=== PATIENT | female | born 1965 | race Caucasian/White ===

== ENCOUNTER 2017-03-01 18:40 | Inpatient (IN) | payer MEDICAID ==
[2017-03-01] MEDS ORDERED: ALBUTEROL SULFATE 0.083% NEB 2.5 MG/3 ML AMPUL NEB ONE (18:46)
[2017-03-01] MEDS ORDERED: NORMAL SALINE 1000 ML 1,000 ML IV ONE ×2 (18:47→21:20)
--- NOTE | 2017-03-01 18:50 | ER Document Report ---
ED General - General Stated Complaint: SHORTNESS OF BREATH Notes: Patient is a 51-year-old female with past medical history of asthma and hypertension, she continues to smoke who presents with 24 hours of progressively worsening episode of shortness of breath. States that she's been using her albuterol at home with minimal improvement of her symptoms. EMS was contacted today when she states that her shortness of breath got to the point where it scared her. She has had a be hospitalized once in the past for asthma but states this was over a decade ago. She has never required intubation. She has not noted that having symptoms worsen her symptoms. She does describe symptoms is constant and progressively worsening since onset. Denies any sputum production, chest pain, lightheadedness or syncope. She has not spoken to her primary care doctor regarding today's concerns. TRAVEL OUTSIDE OF THE [place] IN LAST 30 DAYS: No - Related Data Allergies/Adverse Reactions: No Known Allergies Allergy (Verified 11/19/14 17:29) Past Medical History - General Information source: Patient - Social History Smoking Status: Current Every Day Smoker Frequency of alcohol use: None Drug Abuse: None Lives with: Spouse/Significant other Family History: Reviewed & Not Pertinent Pulmonary Medical History: Reports: Hx Asthma - Immunizations Hx Diphtheria, Pertussis, Tetanus Vaccination: Yes Review of Systems - Review of Systems Notes: Constitutional: Negative for fever. HENT: Negative for sore throat. Eyes: Negative for visual changes. Cardiovascular: Negative for chest pain. Respiratory: Positive for shortness of breath. Gastrointestinal: Negative for abdominal pain, vomiting or diarrhea. Genitourinary: Negative for dysuria. Musculoskeletal: Negative for back pain. Skin: Negative for rash. Neurological: Negative for headaches, weakness or numbness. 10 point ROS negative except as marked above and in HPI. Physical Exam - Vital signs Vitals: Resp Pulse Ox 25 H 93 03/01/17 18:42 03/01/17 18:42 Interpretation: Tachycardic, Hypoxic, Tachypneic Notes: PHYSICAL EXAMINATION: GENERAL: Appears in mild distress HEAD: Atraumatic, normocephalic. EYES: Pupils equal round and reactive to light, extraocular movements intact, sclera anicteric, conjunctiva are normal. ENT: nares patent, oropharynx clear without exudates. Moderately dry mucous membranes. NECK: Normal range of motion, supple without lymphadenopathy LUNGS: Mild to moderate respiratory distress tachypnea. Initial respiratory rate of 32. She does have some intercostal retractions. There is diminished air movement throughout and coarse wheezing in all lung phipps with a prolonged expiratory phase. HEART: Regular tachycardia without murmurs ABDOMEN: Soft, nontender, normoactive bowel sounds. No guarding, no rebound. No masses appreciated. EXTREMITIES: Normal range of motion, no pitting or edema. No cyanosis. NEUROLOGICAL: No focal neurological deficits. Moves all extremities spontaneously and on command. PSYCH: Normal mood, normal affect. SKIN: Warm, Dry, normal turgor, no rashes or lesions noted. Course - Re-evaluation Re-evalutation: 03/01/17 18:47 Patient arrives in mild respiratory distress with tachypnea, intercostal retractions. She is saturating 88% on room air and does not normally have an oxygen dependence. She had already received Solu-Medrol and to do nebs prior to arrival. On assessment, she has coarse wheezing in all lung phipps with a prolonged expiratory phase. Presentation is most consistent with a moderate asthma exacerbation. She will placed on continuous nebulizers, IV magnesium was started with IV fluids. Chest x-ray will be obtained. She will require frequent reassessments. 03/01/17 19:54 On reassessment, patient is no longer hypoxemic on room air at 92% of continues with increased work of breathing and coarse wheezing in all lung phipps. She is severely tachycardic at 136 likely secondary to albuterol. Magnesium and IV fluids are being administered. At this point despite that patient may likely be unable to turn around in the emergency department and will require admission. Chest x-ray is clear. 03/01/17 21:20 Patient's white blood cell count is markedly elevated at 24 concerning for possible infectious etiology to patient's asthma exacerbation although it is not specific. She has been empirically cover with levofloxacin and ceftriaxone. Blood cultures will be drawn. Additional IV fluids will be administered. Patient continues to be hypoxic at this time off oxygen down to 85%. She is no longer in respiratory distress. At this point, have admitted the patient to Dr. Garcia service after discussing with Dr. Gaona. - Vital Signs Vital signs: Temp Pulse Resp BP Pulse Ox 135 H 21 H 125/69 95 03/01/17 19:30 03/01/17 21:06 03/01/17 21:06 03/01/17 21:12 - Laboratory Result Diagrams: 03/01/17 18:47 03/01/17 18:47 Laboratory results interpreted by me: 03/01/17 03/01/17 18:47 18:47 WBC 24.5 H RBC 5.54 H Hgb 16.1 H Hct 48.1 H Seg Neuts % (Manual) 79 H Lymphocytes % (Manual) 5 L Metamyelocytes % 1 H Abs Neuts (Manual) 20.3 H Abs Monocytes (Manual) 2.7 H Carbon Dioxide 20 L Glucose 128 H Calcium 10.4 H - Diagnostic Test Radiology reviewed: Image reviewed, Reports reviewed Radiology results interpreted by me: 03/01/17 20:24 Chest x-ray: No acute infiltrate Critical Care Note - Critical Care Note Total time excluding time spent on procedures (mins): 36 Comments: Critical care time spent obtaining history from patient or surrogate, discussions with consultants, development of treatment plan with patient or surrogate, evaluation of patient's response to treatment, examination of patient , ordering and performing treatments and interventions, ordering and review of laboratory studies, re-evaluation of patient's condition, ordering and review of radiographic studies and review of old charts Discharge - Discharge Clinical Impression: Respiratory distress, Asthma exacerbation Condition: Fair Disposition: ADMITTED INPATIENT Admitting Provider: Jimenez Unit Admitted: [facility]
[2017-03-01] MEDS: MAGNESIUM SULFATE/D5W 100 ML IV SCH ×2 (19:01→19:47)
[2017-03-01 20:11] LABS: ANION GAP 17 (5-19); BLOOD UREA NITROGEN 10 mg/dL (7-20); CALCIUM 10.4 mg/dL (8.4-10.2); CARBON DIOXIDE 20 mmol/L (22-30); CHLORIDE 104 mmol/L (98-107); CREATININE RESULT 0.63 mg/dL (0.52-1.25); GLUCOSE 128 mg/dL (75-110); POTASSIUM 4.1 mmol/L (3.6-5.0)
[2017-03-01 20:16] LABS: HEMATOCRIT 48.1 % (36.0-47.0); HEMOGLOBIN 16.1 g/dL (12.0-15.5); HGB HCT DIFFERENCE 0.2; MEAN CORPUSCULAR HGB CONC 33.5 g/dL (32.0-36.0); MEAN CORPUSCULAR VOLUME 87 fl (80-97); RED BLOOD COUNT 5.54 10^6/uL (3.72-5.28); RED CELL DISTRIBUTION WIDTH 13.3 % (11.5-14.0); WHITE BLOOD COUNT 24.5 10^3/uL (4.0-10.5)
[2017-03-01 20:44] LABS: BAND NEUTROPHILS % (MANUAL) 3 % (3-5); BASOPHILS % (MANUAL) 1 % (0-2); EOSINOPHILS % (MANUAL) 0 % (0-6); LYMPHOCYTES % (MANUAL) 5 % (13-45); TOTAL CELLS COUNTED 100
[2017-03-01 20:45] LABS: RBC MORPHOLOGY COMMENT NORMO-CYTIC/CHROMIC; TOXIC GRANULATION SLIGHT; TOXIC VACUOLATION PRESENT
[2017-03-01] MEDS ORDERED: CEFTRIAXONE 1 GM/D5W RTU 50 ML IV ONE (21:18)
[2017-03-01] MEDS ORDERED: LEVOFLOXACIN 750 MG/D5W RTU 150 ML IV ONE (21:18)
[2017-03-01] MEDS ORDERED: IPRATROPIUM/ALBUTEROL 0.5-2.5 MG/3 ML AMPUL NEB ONE (21:21)
[2017-03-01] MEDS ORDERED: LEVOFLOXACIN 750 MG/D5W RTU 750 MG/150 ML RTUPB IV ONE (23:07)
[2017-03-01] MEDS ORDERED: METHYLPREDNISOLONE INJ 125 MG/2 ML SDV IV SCH (23:30)
[2017-03-01] MEDS ORDERED: METHYLPREDNISOLONE INJ 125 MG/2 ML SDV IV ONE (23:30)
[2017-03-02] MEDS: IPRATROPIUM/ALBUTEROL 0.5-2.5 MG/3 ML AMPUL NEB SCH ×6 (00:01→20:19)
[2017-03-02] MEDS: METHYLPREDNISOLONE INJ 125 MG/2 ML SDV IV SCH ×3 (05:26→22:01)
[2017-03-02] MEDS: LANSOPRAZOLE 30 MG TAB.RAP.DR PO SCH (05:26)
[2017-03-02 06:30] LABS: HGB HCT DIFFERENCE 1.3; MEAN CORPUSCULAR HEMOGLOBIN 29.8 pg (27.0-33.4); MEAN CORPUSCULAR HGB CONC 34.5 g/dL (32.0-36.0); MEAN CORPUSCULAR VOLUME 87 fl (80-97); RED BLOOD COUNT 4.39 10^6/uL (3.72-5.28); RED CELL DISTRIBUTION WIDTH 13.6 % (11.5-14.0); WHITE BLOOD COUNT 17.5 10^3/uL (4.0-10.5)
[2017-03-02 07:04] LABS: BAND NEUTROPHILS % (MANUAL) 1 % (3-5); BASOPHILS % (MANUAL) 0 % (0-2); EOSINOPHILS % (MANUAL) 0 % (0-6); LYMPHOCYTES % (MANUAL) 3 % (13-45); TOTAL CELLS COUNTED 100
[2017-03-02 07:05] LABS: RBC MORPHOLOGY COMMENT NORMO-CYTIC/CHROMIC
[2017-03-02 07:28] LABS: HEMOGLOBIN 13.1 g/dL (12.0-15.5)
[2017-03-02] MEDS: ENOXAPARIN SODIUM INJ 40 MG/0.4 ML DISP.SYRIN SUBCUT SCH (08:08)
[2017-03-02] MEDS ORDERED: AMLODIPINE BESYLATE 10 MG TABLET PO SCH (10:00)
[2017-03-02] MEDS: CEFEPIME 1 GM/D5W RTU 1 GM/50 ML RTUPB IV SCH ×2 (10:05→22:01)
--- NOTE | 2017-03-02 12:18 | PDOC H&P ---
History of Present Illness Admission Date/PCP: 03/01/17 21:50 JOSEP MITCHELL MD Patient complains of: Worsening shortness of breath History of Present Illness: BERNA NOLEN is a 51 year old female patient of Dr. Mitchell who was brought to the ED by medic due to above complaint. Patient reported progressive worsening SOB with wheezing and no relief despite usage of her inhaler. She denied any associated chest pain but reported productive cough with whitish sputum. No fever or chills. She continue to smoke about 1PPD and early start about 30 minutes upon waking up. She denied prior intubation of hospitalization for same in last 12 months. Despite initial treatment in the ED she continue to demonstrate oxygen desaturation in pulse oximetry off supplemental oxygen. In view of her presentation and clinical findings she was advised hospitalization for exacerbated COPD with hypoxemia and possible infectious process. Past Medical History Cardiac Medical History: Reports: Hyperlipidema, Hypertension Pulmonary Medical History: Reports: Asthma Social History Lives with: Spouse/Significant other Smoking Status: Current Every Day Smoker Cigarettes Packs Per Day: 20 Number of Years Smokin Frequency of Alcohol Use: None Hx Recreational Drug Use: No Drugs: None Hx Prescription Drug Abuse: No - Advance Directive Resuscitation Status: Full Code Family History Family History: Reviewed & Not Pertinent Parental Family History Reviewed: Yes Children Family History Reviewed: Yes Sibling(s) Family History Reviewed.: Yes Medication/Allergy Home Medications: Albuterol Sulfate [Proair HFA Inhalation Aerosol 8.5 gm MDI] 2 puff IH QID 03/01 Amlodipine Besylate 10 mg PO DAILY 03/01/17 Montelukast Sodium 10 mg PO QPM 03/01/17 Allergies/Adverse Reactions: No Known Allergies Allergy (Verified 11/19/14 17:29) Review of Systems Constitutional: ABSENT: chills, fever(s), headache(s), weight gain, weight loss Eyes: ABSENT: visual disturbances Ears: ABSENT: hearing changes Nose, Mouth, and Throat: ABSENT: as per HPI, headache(s), mouth pain, sore throat, vertigo, other Cardiovascular: ABSENT: chest pain, dyspnea on exertion, edema, orthropnea, palpitations Respiratory: PRESENT: cough, dyspnea, sputum. ABSENT: as per HPI, hemoptysis, other Gastrointestinal: ABSENT: abdominal pain, constipation, diarrhea, hematemesis, hematochezia, nausea, vomiting Genitourinary: ABSENT: dysuria, hematuria Musculoskeletal: ABSENT: joint swelling Integumentary: ABSENT: rash, wounds Neurological: ABSENT: abnormal gait, abnormal speech, confusion, dizziness, focal weakness, syncope Endocrine: ABSENT: cold intolerance, heat intolerance, menstrual abnormalities, polydipsia, polyuria Hematologic/Lymphatic: ABSENT: easy bleeding, easy bruising, lymphadenopathy Allergic/Immunologic: PRESENT: as per HPI, other. ABSENT: seasonal rhinorrhea Physical Exam Vital Signs: Temp Pulse Resp BP Pulse Ox 98.0 F 115 H 18 112/46 L 95 03/02/17 07:42 03/02/17 08:13 03/02/17 08:13 03/02/17 07:42 03/02/17 08:13 Intake & Output 03/01/17 03/02/17 03/03/17 06:59 06:59 06:59 Intake Total 737 Balance 737 Weight 64.1 kg General appearance: PRESENT: no acute distress, cooperative, mild distress - with supplemental oxygen via nasal canula in use. Head exam: PRESENT: atraumatic, normocephalic Eye exam: PRESENT: conjunctiva pink, EOMI, PERRLA. ABSENT: scleral icterus Ear exam: PRESENT: normal external ear exam Mouth exam: PRESENT: moist, tongue midline Throat exam: ABSENT: post pharyngeal erythema, tonsillar erythema, tonsillar exudate, tonsillogmegaly, other Neck exam: PRESENT: full ROM. ABSENT: carotid bruit, JVD, lymphadenopathy, thyromegaly Respiratory exam: PRESENT: decreased breath sounds, rhonchi, wheezes Cardiovascular exam: PRESENT: RRR. ABSENT: diastolic murmur, rubs, systolic murmur Pulses: PRESENT: normal dorsalis pedis pul, +2 pedal pulses bilateral GI/Abdominal exam: PRESENT: normal bowel sounds, soft. ABSENT: distended, guarding, mass, organolmegaly, rebound, tenderness Rectal exam: PRESENT: deferred Extremities exam: PRESENT: full ROM Musculoskeletal exam: PRESENT: deformity - related to multiple joints involvement with arthritis Psychiatric exam: PRESENT: appropriate affect, normal mood. ABSENT: homicidal ideation, suicidal ideation Skin exam: PRESENT: dry, intact, warm. ABSENT: cyanosis, rash Results Laboratory Results: 03/02/17 06:00 03/02/17 06:00 WBC 17.5 H RBC 4.39 Hgb 13.1 D Hct 38.0 MCV 87 MCH 29.8 MCHC 34.5 RDW 13.6 Plt Count 229 Seg Neutrophils % Not Reportable Lymphocytes % Not Reportable Monocytes % Not Reportable Eosinophils % Not Reportable Basophils % Not Reportable Absolute Neutrophils Not Reportable Absolute Lymphocytes Not Reportable Absolute Monocytes Not Reportable Absolute Eosinophils Not Reportable Absolute Basophils Not Reportable Impressions: Chest X-Ray 03/01/17 18:47 IMPRESSION: NO SIGNIFICANT RADIOGRAPHIC FINDING IN THE CHEST. Assessment & Plan - Diagnosis (1) COPD (chronic obstructive pulmonary disease) with acute bronchitis Is this a current diagnosis for this admission?: YesPlan: See covering admitting physician orders. (2) Hypoxemia requiring supplemental oxygen Is this a current diagnosis for this admission?: YesPlan: See covering admitting physician orders. (3) Smokes 1 pack of cigarettes per day Is this a current diagnosis for this admission?: YesPlan: See covering admitting physician orders. (4) Asthma exacerbation Is this a current diagnosis for this admission?: YesPlan: See covering admitting physician orders. (5) HTN (hypertension) Qualifiers: Hypertension type: essential hypertension Qualified Code(s): I10 - Essential (primary) hypertension Is this a current diagnosis for this admission?: YesPlan: See covering admitting physician orders. (6) HLD (hyperlipidemia) Is this a current diagnosis for this admission?: YesPlan: See covering admitting physician orders. 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
[2017-03-02] MEDS: MONTELUKAST SODIUM 10 MG TABLET PO SCH (17:31)
[2017-03-02] MEDS: LEVOFLOXACIN 750 MG/D5W RTU 750 MG/150 ML RTUPB IV SCH (22:43)
[2017-03-03] MEDS: IPRATROPIUM/ALBUTEROL 0.5-2.5 MG/3 ML AMPUL NEB SCH ×7 (00:28→23:35)
[2017-03-03] MEDS: LANSOPRAZOLE 30 MG TAB.RAP.DR PO SCH (05:38)
[2017-03-03] MEDS: METHYLPREDNISOLONE INJ 125 MG/2 ML SDV IV SCH ×3 (05:38→21:31)
[2017-03-03 06:26] LABS: ANION GAP 14 (5-19); BLOOD UREA NITROGEN 17 mg/dL (7-20); CALCIUM 9.9 mg/dL (8.4-10.2); CARBON DIOXIDE 18 mmol/L (22-30); CHLORIDE 112 mmol/L (98-107); GLUCOSE 138 mg/dL (75-110); POTASSIUM 3.9 mmol/L (3.6-5.0); SODIUM 144.2 mmol/L (137-145)
[2017-03-03] MEDS: CEFEPIME 1 GM/D5W RTU 1 GM/50 ML RTUPB IV SCH ×2 (09:21→21:31)
[2017-03-03] MEDS: AMLODIPINE BESYLATE 10 MG TABLET PO SCH (09:22)
[2017-03-03] MEDS: ENOXAPARIN SODIUM INJ 40 MG/0.4 ML DISP.SYRIN SUBCUT SCH (09:23)
--- NOTE | 2017-03-03 13:10 | PDOC PROGRESS REPORT ---
Subjective Progress Note for:: 03/03/17 Subjective:: She has severe persistent asthma, she continued to smoke a package of cigarettes , she was admitted over the weekend when she presented with acute hypoxemic respiratory failure associated with severe exacerbation of asthma/COPD. She was seen by the bedside, on chest auscultation there is diffuse crackles , wheezes, she will continue the intravenous Solu-Medrol and bronchodilators the blood culture is growing gram positive cocci probably contamination, presently on IV antibiotic, specific pathogen not known yet Physical Exam Vital Signs: Temp Pulse Resp BP Pulse Ox 98.5 F 102 H 18 117/54 L 94 03/03/17 07:37 03/03/17 12:12 03/03/17 12:12 03/03/17 07:37 03/03/17 12:12 Intake & Output 03/02/17 03/03/17 03/04/17 06:59 06:59 06:59 Intake Total 737 1747 Output Total 750 Balance 737 997 Weight 64.1 kg 65.6 kg General appearance: PRESENT: mild distress Head exam: PRESENT: atraumatic, normocephalic Eye exam: PRESENT: PERRLA. ABSENT: scleral icterus Ear exam: PRESENT: normal external ear exam Mouth exam: PRESENT: moist, tongue midline Neck exam: PRESENT: full ROM Respiratory exam: PRESENT: rhonchi, wheezes Cardiovascular exam: PRESENT: RRR, +S1, +S2 Pulses: PRESENT: normal dorsalis pedis pul, +2 pedal pulses bilateral Vascular exam: PRESENT: normal capillary refill GI/Abdominal exam: PRESENT: normal bowel sounds, soft Rectal exam: PRESENT: deferred Neurological exam: PRESENT: alert, awake, oriented to person, oriented to place , oriented to time, oriented to situation, CN II-XII grossly intact. ABSENT: motor sensory deficit Psychiatric exam: PRESENT: appropriate affect, normal mood Skin exam: PRESENT: dry, intact, warm Results Laboratory Results: 03/02/17 06:00 03/03/17 05:22 03/03/17 05:22 Sodium 144.2 Potassium 3.9 Chloride 112 H Carbon Dioxide 18 L Anion Gap 14 BUN 17 Creatinine 0.70 Est GFR ( Amer) > 60 Est GFR (Non-Af Amer) > 60 Glucose 138 H Calcium 9.9 Impressions: Chest X-Ray 03/01/17 18:47 IMPRESSION: NO SIGNIFICANT RADIOGRAPHIC FINDING IN THE CHEST. Assessment & Plan - Diagnosis (1) Acute hypoxemic respiratory failure Is this a current diagnosis for this admission?: YesPlan: She will continue supplemental oxygen (2) Status asthmaticus with COPD (chronic obstructive pulmonary disease) Is this a current diagnosis for this admission?: YesPlan: She will continue IV Solu-Medrol and bronchodilators (3) Asthma exacerbation Is this a current diagnosis for this admission?: Yes (4) COPD (chronic obstructive pulmonary disease) with acute bronchitis Is this a current diagnosis for this admission?: Yes (5) HLD (hyperlipidemia) Is this a current diagnosis for this admission?: Yes (6) HTN (hypertension) Qualifiers: Hypertension type: essential hypertension Qualified Code(s): I10 - Essential (primary) hypertension Is this a current diagnosis for this admission?: Yes (7) Hypoxemia requiring supplemental oxygen Is this a current diagnosis for this admission?: Yes (8) Respiratory distress Is this a current diagnosis for this admission?: Yes (9) Smokes 1 pack of cigarettes per day Is this a current diagnosis for this admission?: Yes
[2017-03-03] MEDS: MONTELUKAST SODIUM 10 MG TABLET PO SCH (17:18)
[2017-03-03] MEDS: LEVOFLOXACIN 750 MG/D5W RTU 750 MG/150 ML RTUPB IV SCH (22:50)
[2017-03-04] MEDS: IPRATROPIUM/ALBUTEROL 0.5-2.5 MG/3 ML AMPUL NEB SCH ×5 (03:38→20:36)
[2017-03-04] MEDS: METHYLPREDNISOLONE INJ 125 MG/2 ML SDV IV SCH ×3 (05:15→22:33)
[2017-03-04] MEDS: LANSOPRAZOLE 30 MG TAB.RAP.DR PO SCH (05:16)
[2017-03-04] MEDS: ENOXAPARIN SODIUM INJ 40 MG/0.4 ML DISP.SYRIN SUBCUT SCH (08:35)
[2017-03-04] MEDS: CEFEPIME 1 GM/D5W RTU 1 GM/50 ML RTUPB IV SCH ×2 (10:16→22:35)
[2017-03-04] MEDS: AMLODIPINE BESYLATE 10 MG TABLET PO SCH (10:16)
[2017-03-04] MEDS: MONTELUKAST SODIUM 10 MG TABLET PO SCH (17:53)
--- NOTE | 2017-03-04 20:22 | PDOC PROGRESS REPORT ---
Subjective Progress Note for:: 03/04/17 Subjective:: She was seen by the bedside, she has no new complaints she is still on IV Solu- Medrol and bronchodilators Physical Exam Vital Signs: Temp Pulse Resp BP Pulse Ox 97.9 F 111 H 16 124/67 91 L 03/04/17 19:45 03/04/17 19:45 03/04/17 19:45 03/04/17 19:45 03/04/17 19:45 Intake & Output 03/03/17 03/04/17 03/05/17 06:59 06:59 06:59 Intake Total 1747 1231 410 Output Total 750 900 300 Balance 997 331 110 Weight 65.6 kg 65.2 kg General appearance: PRESENT: no acute distress Eye exam: PRESENT: PERRLA Respiratory exam: PRESENT: crackles, wheezes Cardiovascular exam: PRESENT: +S1, +S2 GI/Abdominal exam: PRESENT: soft Neurological exam: PRESENT: alert Results Laboratory Results: 03/02/17 06:00 03/03/17 05:22 Impressions: Chest X-Ray 03/01/17 18:47 IMPRESSION: NO SIGNIFICANT RADIOGRAPHIC FINDING IN THE CHEST. Assessment & Plan - Diagnosis (1) Acute hypoxemic respiratory failure Is this a current diagnosis for this admission?: Yes (2) Status asthmaticus with COPD (chronic obstructive pulmonary disease) Is this a current diagnosis for this admission?: Yes (3) Asthma exacerbation Is this a current diagnosis for this admission?: Yes (4) COPD (chronic obstructive pulmonary disease) with acute bronchitis Is this a current diagnosis for this admission?: Yes (5) HLD (hyperlipidemia) Is this a current diagnosis for this admission?: Yes (6) HTN (hypertension) Qualifiers: Hypertension type: essential hypertension Qualified Code(s): I10 - Essential (primary) hypertension Is this a current diagnosis for this admission?: Yes (7) Hypoxemia requiring supplemental oxygen Is this a current diagnosis for this admission?: Yes (8) Respiratory distress Is this a current diagnosis for this admission?: Yes (9) Smokes 1 pack of cigarettes per day Is this a current diagnosis for this admission?: Yes - Plan Summary Plan Summary: She will continue IV Solu-Medrol and bronchodilator
[2017-03-04] MEDS: LEVOFLOXACIN 750 MG/D5W RTU 750 MG/150 ML RTUPB IV SCH (22:37)
[2017-03-05] MEDS: IPRATROPIUM/ALBUTEROL 0.5-2.5 MG/3 ML AMPUL NEB SCH ×6 (01:06→20:34)
[2017-03-05] MEDS: METHYLPREDNISOLONE INJ 125 MG/2 ML SDV IV SCH ×2 (05:12→15:00)
[2017-03-05] MEDS: LANSOPRAZOLE 30 MG TAB.RAP.DR PO SCH (05:12)
[2017-03-05] MEDS: AMLODIPINE BESYLATE 10 MG TABLET PO SCH (09:22)
[2017-03-05] MEDS: CEFEPIME 1 GM/D5W RTU 1 GM/50 ML RTUPB IV SCH ×2 (09:22→21:36)
[2017-03-05] MEDS: ENOXAPARIN SODIUM INJ 40 MG/0.4 ML DISP.SYRIN SUBCUT SCH (09:23)
--- NOTE | 2017-03-05 17:38 | PDOC PROGRESS REPORT ---
Subjective Progress Note for:: 03/05/17 Subjective:: She was seen by the bedside, blood culture grew Streptococcus mitis, probably contamination Physical Exam Vital Signs: Temp Pulse Resp BP Pulse Ox 98.1 F 101 H 16 121/63 95 03/05/17 15:48 03/05/17 15:48 03/05/17 15:48 03/05/17 15:48 03/05/17 15:48 Intake & Output 03/04/17 03/05/17 03/06/17 06:59 06:59 06:59 Intake Total 1231 989 Output Total 900 850 Balance 331 139 Weight 65.2 kg 64.8 kg General appearance: PRESENT: no acute distress Eye exam: PRESENT: PERRLA Respiratory exam: PRESENT: crackles, rhonchi, wheezes Cardiovascular exam: PRESENT: +S1, +S2 GI/Abdominal exam: PRESENT: soft Neurological exam: PRESENT: alert, CN II-XII grossly intact Results Laboratory Results: 03/02/17 06:00 03/03/17 05:22 03/01/17 22:00 Blood Blood Culture - Final Streptococcus Mitis Impressions: Chest X-Ray 03/01/17 18:47 IMPRESSION: NO SIGNIFICANT RADIOGRAPHIC FINDING IN THE CHEST. Assessment & Plan - Diagnosis (1) Acute hypoxemic respiratory failure Is this a current diagnosis for this admission?: Yes (2) Status asthmaticus with COPD (chronic obstructive pulmonary disease) Is this a current diagnosis for this admission?: Yes (3) Asthma exacerbation Is this a current diagnosis for this admission?: Yes (4) COPD (chronic obstructive pulmonary disease) with acute bronchitis Is this a current diagnosis for this admission?: Yes (5) HLD (hyperlipidemia) Is this a current diagnosis for this admission?: Yes (6) HTN (hypertension) Qualifiers: Hypertension type: essential hypertension Qualified Code(s): I10 - Essential (primary) hypertension Is this a current diagnosis for this admission?: Yes (7) Hypoxemia requiring supplemental oxygen Is this a current diagnosis for this admission?: Yes (8) Respiratory distress Is this a current diagnosis for this admission?: Yes (9) Smokes 1 pack of cigarettes per day Is this a current diagnosis for this admission?: Yes - Plan Summary Plan Summary: She stated sounds very wheezy on critical she will continue present treatment and hopefully discharge her tomorrow on p.o. prednisone
[2017-03-05] MEDS ORDERED: PREDNISONE 20 MG TABLET PO ONE ×2 (18:30→22:00)
[2017-03-05] MEDS: MONTELUKAST SODIUM 10 MG TABLET PO SCH (18:32)
[2017-03-05] MEDS: LEVOFLOXACIN 750 MG/D5W RTU 750 MG/150 ML RTUPB IV SCH (22:15)
[2017-03-06] MEDS: IPRATROPIUM/ALBUTEROL 0.5-2.5 MG/3 ML AMPUL NEB SCH ×6 (00:01→21:19)
[2017-03-06] MEDS: LANSOPRAZOLE 30 MG TAB.RAP.DR PO SCH (05:27)
[2017-03-06] MEDS: AMLODIPINE BESYLATE 10 MG TABLET PO SCH (09:27)
[2017-03-06] MEDS: CEFEPIME 1 GM/D5W RTU 1 GM/50 ML RTUPB IV SCH (09:28)
[2017-03-06] MEDS: ENOXAPARIN SODIUM INJ 40 MG/0.4 ML DISP.SYRIN SUBCUT SCH (09:28)
[2017-03-06] MEDS ORDERED: PREDNISONE 20 MG TABLET PO SCH (10:00)
[2017-03-06 15:49] VITALS: BP 120/64
--- NOTE | 2017-03-06 18:56 | PDOC DISCHARGE SUMMARY ---
General - Admit/Disc Date/PCP Admission Date/Primary Care Provider: 03/01/17 21:50 JOSEP MITCHELL MD Discharge Date: 03/06/17 - Discharge Diagnosis (1) Acute hypoxemic respiratory failure Is this a current diagnosis for this admission?: Yes (2) Status asthmaticus with COPD (chronic obstructive pulmonary disease) Is this a current diagnosis for this admission?: Yes (3) Asthma exacerbation Is this a current diagnosis for this admission?: Yes (4) COPD (chronic obstructive pulmonary disease) with acute bronchitis Is this a current diagnosis for this admission?: Yes (5) HLD (hyperlipidemia) Is this a current diagnosis for this admission?: Yes (6) HTN (hypertension) Is this a current diagnosis for this admission?: Yes (7) Hypoxemia requiring supplemental oxygen Is this a current diagnosis for this admission?: Yes (8) Respiratory distress Is this a current diagnosis for this admission?: Yes (9) Smokes 1 pack of cigarettes per day Is this a current diagnosis for this admission?: Yes - Additional Information Resuscitation Status: Full Code Discharge Diet: As Tolerated Discharge Activity: Activity As Tolerated Home Medications: Albuterol Sulfate [Proair HFA Inhalation Aerosol 8.5 gm MDI] 2 puff IH QID 03/01 Amlodipine Besylate 10 mg PO DAILY 03/01/17 Montelukast Sodium 10 mg PO QPM 03/01/17 Amlodipine Besylate [Norvasc 10 mg Tablet] 10 mg PO DAILY #0 tablet 03/06/17 Budesonide/Formoterol Fumarate [Symbicort Hfa 160-4.5 Mcg Inhaler 6 gm] 2 puff IH Q12 #1 inhaler 03/06/17 Montelukast Sodium [Singulair 10 mg Tablet] 10 mg PO QPM #0 tablet 03/06/17 Prednisone [Deltasone 20 mg Tablet] 60 mg PO DAILY #40 tablet 03/06/17 Tiotropium [place] [Spiriva Respimat] 4 gm IH DAILY #2 mist.inhal 03/06/17 History of Present Illness History of Present Illness: BERNA NOLEN is a 51 year old female, she was admitted with acute hypoxemic respiratory failure due to acute COPD exacerbation Hospital Course Hospital Course: She has a history of severe persistent asthma, COPD with history of tobacco abuse, she was admitted because of acute hypoxemic respiratory failure due to COPD exacerbation. She was treated with IV Solu-Medrol, bronchodilators and antibiotic. Patient had prolonged wheezing but physically she was better the last 2 days. She is still continues to wheeze but she can be discharged home safely on p.o. prednisone and other medications. Physical Exam Vital Signs: Temp Pulse Resp BP Pulse Ox 98.2 F 110 H 24 H 120/64 95 03/06/17 15:39 03/06/17 15:40 03/06/17 15:40 03/06/17 15:39 03/06/17 15:40 Intake & Output 03/05/17 03/06/17 03/07/17 06:59 06:59 06:59 Intake Total 989 1370 527 Output Total 850 1050 1500 Balance 139 320 -973 Weight 64.8 kg 65.2 kg General appearance: PRESENT: no acute distress, well-developed, well-nourished Head exam: PRESENT: atraumatic, normocephalic Eye exam: PRESENT: conjunctiva pink, EOMI, PERRLA. ABSENT: scleral icterus Ear exam: PRESENT: normal external ear exam Mouth exam: PRESENT: moist, tongue midline Neck exam: PRESENT: full ROM Respiratory exam: PRESENT: wheezes Cardiovascular exam: PRESENT: RRR, +S1, +S2 Pulses: PRESENT: normal dorsalis pedis pul, +2 pedal pulses bilateral Vascular exam: PRESENT: normal capillary refill GI/Abdominal exam: PRESENT: normal bowel sounds, soft Rectal exam: PRESENT: deferred Neurological exam: PRESENT: alert, awake, oriented to person, oriented to place , oriented to time, oriented to situation, CN II-XII grossly intact Psychiatric exam: PRESENT: appropriate affect, normal mood Skin exam: PRESENT: dry, intact, warm Results Laboratory Results: 03/02/17 06:00 03/03/17 05:22 Impressions: Chest X-Ray 03/01/17 18:47 IMPRESSION: NO SIGNIFICANT RADIOGRAPHIC FINDING IN THE CHEST.
[2017-03-06] MEDS ORDERED: LEVOFLOXACIN 750 MG TABLET PO SCH (22:00)
[2017-03-07] MEDS: CEFEPIME 1 GM/D5W RTU 1 GM/50 ML RTUPB IV SCH (00:09)
[2017-03-07] MEDS: IPRATROPIUM/ALBUTEROL 0.5-2.5 MG/3 ML AMPUL NEB SCH (01:30)
== END 2017-03-06 20:30 | disposition home or self-care (01) | DRG 190 ==
LOC: ER 18:40 → EH 21:50 → 3W 22:41
PROVIDERS: ADMIT Internal Medicine; ATTEND Internal Medicine
PROC: 3E0F73Z Introduction of Anti-inflammatory into Respiratory Tract, Via Natural or Artificial Opening (ICD-10-PCS; principal; 2017-03-02)
DX: J44.1 Chronic obstructive pulmonary disease with (acute) exacerbation (principal); J96.01 Acute respiratory failure with hypoxia; J45.902 Unspecified asthma with status asthmaticus; J44.0 Chronic obstructive pulmonary disease with (acute) lower respiratory infection; J20.9 Acute bronchitis, unspecified; I10 Essential (primary) hypertension; E78.5 Hyperlipidemia, unspecified; F17.210 Nicotine dependence, cigarettes, uncomplicated; Z79.899 Other long term (current) drug therapy
CPT/HCPCS: 36415; 71010; 80048; 85025; 87040; 87077; 87186; 94640; 96365; 99291; J0692; J0696; J1650; J1956; J2930; J3475; J7030; J7512; J7620

== ENCOUNTER 2018-08-09 12:33 | Emergency (ER) | payer MEDICAID ==
[2018-08-09] MEDS ORDERED: DEXAMETHASONE SOD PHOS INJ 10 MG/1 ML VIAL IM ONE (14:23)
--- NOTE | 2018-08-09 14:25 | ER Document Report ---
ED Respiratory Problem - General Chief Complaint: Asthma Exacerbation Stated Complaint: DIFFICULTY BREATHING Time Seen by Provider: 08/09/18 14:05 Mode of Arrival: Ambulatory Information source: Patient Notes: 52-year-old female presents to ED for complaint of shortness of breath and asthma exacerbation. Patient states she needed to come to the hospital because she was having difficulty breathing. Her O2 sats were 99% in route on room air. Patient states she is having persistent cough. She does have an albuterol inhaler. She states she has been using it. Patient is in no acute distress she is alert and oriented respirations regular and unlabored speaking in full sentences. TRAVEL OUTSIDE OF THE [place] IN LAST 30 DAYS: No - HPI Patient complains to provider of: Asthma, Short of breath Onset: Yesterday Duration: Continuous Quality of pain: No pain Severity: None Pain Level: Denies Context: Smoker Cough: Nonproductive Sputum amount: None At home treatment: Bronchodilators Associated symptoms: Congestion, Cough, PND, Runny nose, Sinus pain/pressure, Short of breath Similar symptoms previously: Yes Recently seen / treated by doctor: No - Related Data Allergies/Adverse Reactions: No Known Allergies Allergy (Verified 11/19/14 17:29) Past Medical History - General Information source: Patient - Social History Smoking Status: Current Every Day Smoker Cigarette use (# per day): Yes Smoking Education Provided: Yes - 4 min Frequency of alcohol use: None Drug Abuse: None Lives with: Family Family History: Reviewed & Not Pertinent Patient has suicidal ideation: No Patient has homicidal ideation: No - Past Medical History Cardiac Medical History: Reports: Hx Hypercholesterolemia, Hx Hypertension Pulmonary Medical History: Reports: Hx Asthma, Hx COPD EENT Medical History: Reports: None Neurological Medical History: Reports: None Endocrine Medical History: Reports: None Renal/ Medical History: Reports: None Malignancy Medical History: Reports: None GI Medical History: Reports: None Musculoskeletal Medical History: Reports None Skin Medical History: Reports None Psychiatric Medical History: Reports: None Traumatic Medical History: Reports: None Infectious Medical History: Reports: None Surgical Hx: Negative Past Surgical History: Reports: None - Immunizations Hx Diphtheria, Pertussis, Tetanus Vaccination: Yes Review of Systems - Review of Systems Constitutional: No symptoms reported EENT: No symptoms reported Cardiovascular: No symptoms reported Respiratory: Cough, Short of breath, Wheezing Gastrointestinal: No symptoms reported Genitourinary: No symptoms reported Female Genitourinary: No symptoms reported Musculoskeletal: No symptoms reported Skin: No symptoms reported Hematologic/Lymphatic: No symptoms reported Neurological/Psychological: No symptoms reported -: Yes All other systems reviewed and negative Physical Exam - Vital signs Vitals: Temp Pulse Resp BP Pulse Ox 98.6 F 104 H 14 118/57 L 98 08/09/18 12:40 08/09/18 12:40 08/09/18 12:40 08/09/18 12:40 08/09/18 12:40 Interpretation: Normal - General General appearance: Appears well, Alert - HEENT Head: Normocephalic, Atraumatic Eyes: Normal Pupils: PERRL - Respiratory Respiratory status: No respiratory distress Chest status: Nontender Breath sounds: Wheezing - Minimal wheezing Chest palpation: Normal - Cardiovascular Rhythm: Regular Heart sounds: Normal auscultation Murmur: No - Abdominal Inspection: Normal Distension: No distension Bowel sounds: Normal Tenderness: Nontender Organomegaly: No organomegaly - Back Back: Normal, Nontender - Extremities General upper extremity: Normal inspection, Nontender, Normal color, Normal ROM , Normal temperature General lower extremity: Normal inspection, Nontender, Normal color, Normal ROM , Normal temperature, Normal weight bearing. No: Kalyani's sign - Neurological Neuro grossly intact: Yes Cognition: Normal Orientation: AAOx4 Phillips Coma Scale Eye Opening: Spontaneous Phillips Coma Scale Verbal: Oriented Phillips Coma Scale Motor: Obeys Commands Phillips Coma Scale Total: 15 Speech: Normal Motor strength normal: LUE, RUE, LLE, RLE Sensory: Normal - Psychological Associated symptoms: Normal affect, Normal mood - Skin Skin Temperature: Warm Skin Moisture: Dry Skin Color: Normal Course - Re-evaluation Re-evalutation: 08/09/18 14:41 Patient was treated with Decadron injection and albuterol nebulizer 2. If wheezing is improved patient will be discharged home to follow-up with her primary doctor and use her an albuterol inhaler that she has in her possession. - Vital Signs Vital signs: Temp Pulse Resp BP Pulse Ox 98.5 F 91 20 123/76 98 08/09/18 14:37 08/09/18 14:37 08/09/18 14:37 08/09/18 14:37 08/09/18 14:37 Discharge - Discharge Clinical Impression: Asthma exacerbation Qualifiers: Asthma severity: mild Asthma persistence: intermittent Qualified Code(s): J45.21 - Mild intermittent asthma with (acute) exacerbation Condition: Stable Disposition: HOME, SELF-CARE Additional Instructions: ASTHMA: You have been diagnosed as having asthma. This is a condition where there is episodic tightness in the bronchial tubes. Allergies, infections, and polluted or cold air may be contributing factors. Emergency treatment of a severe asthma attack may include adrenaline shots , or bronchodilator aerosol. You may feel lightheaded, have a decreased exercise tolerance and a rapid pulse for an hour or two. Rest and get plenty of fluids. Home treatment of asthma requires bronchodilator drugs. These can be administered by injection, inhalation, or by mouth. Antibiotics and corticosteroids may be required for some patients. You should avoid chemical fumes, dusts, pollens, and exercising in very cold or dry air. If you smoke, stop!! If you develop a fever, increased wheezing, chest pain, or severe shortness of breath, you should contact the doctor immediately. STEROID MEDICATION: You have been given an injection of or oral medicine of the cortisone/ steroid class. This medication is used to control inflammation or allergy. Jesse t is usually only given for a short period of time, until the acute process subsides. There are usually no side effects from short-term use of cortisone-like medications. Some persons feel an increased sense of well-being and are not sleepy at bedtime. Long-term use of cortisone medications is best avoided, unless required for a severe condition. If your condition does not remit, or relapses after the course of corticosteroid medication, you should consult your physician. INHALED BRONCHODILATORS: You have received treatment(s) of and/or prescription for an inhaled bronchodilator -- a medication which stimulates the airways in the lung to dilate. This improves the flow of air in asthma, bronchitis, and emphysema. These medicines have some similarity to adrenaline, and can cause similar side effects: shakiness, racing heart, and a sense of nervousness. These side effects decrease with time. Contact your doctor if these side effects are severe. Do not over-use the medicine. Too-frequent use of the inhaler may make it ineffective. Call your doctor if the inhaler is not controlling your symptoms at the prescribed doses. SMOKING: If you smoke, you should stop smoking. The tar and chemicals in cigarette smoke are harmful. Smoking has been shown to cause: emphysema chronic bronchitis lung cancer mouth and throat cancer stomach and pancreas cancer premature aging defects In addition, smoking increases ear and lung infections in children of smokers. USE OF ACETAMINOPHEN: Acetaminophen may be taken for pain relief or fever control. It's much safer than aspirin, offering a wider range of "safe" dosages. It is safe during . Some brand names are Tylenol, Panadol, Datril, Anacin 3, Tempra, and Liquiprin. Acetaminophen can be repeated every four hours. The following are maximum recommended dosages: FOLLOW-UP CARE: If you have been referred to a physician for follow-up care, call the physician s office for an appointment as you were instructed or within the next two days. If you experience worsening or a significant change in your symptoms, notify the physician immediately or return to the Emergency Department at any time for re-evaluation. Referrals: JOSEP MITCHELL MD [Primary Care Provider] - Follow up as needed
[2018-08-09 14:38] VITALS: BP 123/76
[2018-08-09] MEDS ORDERED: ONDANSETRON 4 MG TAB.RAPDIS PO ONE (14:38)
[2018-08-09] MEDS: ALBUTEROL SULFATE 0.083% NEB 2.5 MG/3 ML AMPUL NEB SCH (14:42)
== END 2018-08-09 15:20 | disposition home or self-care (01) ==
LOC: ER 12:33
DX: J45.21 Mild intermittent asthma with (acute) exacerbation (principal); F17.210 Nicotine dependence, cigarettes, uncomplicated; E78.00 Pure hypercholesterolemia, unspecified; I10 Essential (primary) hypertension
CPT/HCPCS: 99406; 94640 ×2; 99285; 96372; S0119; J1100

== ENCOUNTER → 2019-09-02 | Outpatient (CLI) | payer MEDICAID ==
--- NOTE | 2019-09-02 15:38 | WOMENS IMAGING REPORT ---
EXAM DESCRIPTION: 3D SCREENING MAMMO BILAT COMPLETED DATE/TIME: 09/02/2019 9:14 am REASON FOR STUDY: Z12.31 ENCOUNTER FOR SCREENING MAMMOGRAM FOR MALIGNANT NEOPLASM OF BREAST Z12.31 ENCNTR SCREEN MAMMOGRAM FOR MALIGNANT NEOPLASM OF CLAUDIO COMPARISON: Multiple since 2008 EXAM PARAMETERS: Views: Standard craniocaudal and mediolateral oblique views of each breast recorded using digital acquisition and breast tomosynthesis. Read with the assistance of CAD. .COUNTS INCLUDE 234 BEDS AT THE [facility] - [employer] Version 9.2 LIMITATIONS: None. FINDINGS: No suspicious masses, suspicious calcifications or architectural distortion. No areas of c oncern. IMPRESSION: NEGATIVE MAMMOGRAM. BIRADS 1. BREAST DENSITY: c. The breasts are heterogeneously dense, which may obscure small masses. BIRAD: ASSESSMENT: 1 NEGATIVE RECOMMENDATION: ROUTINE SCREENING Please continue yearly bilateral screening mammography/tomosynthesis in August 2020. COMMENT: The patient has been notified of the results by letter per MQSA requirements. Additional no tification policies are in place for contacting patient with suspicious or incomplete findings. Quality ID #[id number]: The [employer] recommends an annual screening mammogram for women aged 40 years or over. This facility utilizes a reminder system to ensure that all patients receive reminder letters, and/or direct phone calls for appointments. This includes reminders for routine scr eening mammograms, diagnostic mammograms, or other Breast Imaging Interventions when appropriate. Th is patient will be placed in the appropriate reminder system. TECHNICAL DOCUMENTATION: FINDING NUMBER: (1) ASSESSMENT: (1) JOB ID: [id number]- All Rights Reserved Reading location - IP/workstation name: [email or web address]
== END ==
LOC: WI 08:34
PROVIDERS: ATTEND Internal Medicine
DX: Z12.31 Encounter for screening mammogram for malignant neoplasm of breast (principal)
CPT/HCPCS: 77063; 77067